=== PATIENT | female | born 1975 | race Caucasian/White ===

== ENCOUNTER 2017-04-03 00:25 | Emergency (ER) | payer SELFPAY ==
[2017-04-03 00:38] VITALS: BMI 25.6
[2017-04-03] MEDS ORDERED: TORADOL 60 MG VIAL IM ONE (00:44)
[2017-04-03] MEDS ORDERED: CLEOCIN PO ONE (00:45)
--- NOTE | 2017-04-03 00:45 | DR.GENAD ---
HPI - PCP Primary Care Physician: NFD - HPI Comment HPI Comment: WORSE TONIGHT. NO FEVER. HISTORY DENTAL CARIES. - Complaint/Symptoms Chief Complaint Doctors Comments: TOOTHACHE AND LT JAW PAIN TIMES 2 DAYS. Chief Complaint:: LT DENTAL PAIN UPPER AND LOWER JAW PAIN - Nurses notes reviewed Nurses Notes Review: Yes - Source History Provided: Patient - Mode of Arrival Mode of Arrival: Ambulatory - Timing Onset of Chief Complaint: 04/03/17 Came on: Suddenly - Duration Duration: Constant Duration: Days - Severity Severity: Moderate PMH - PMH Past Medical History: Yes Past Medical History: Diabetes Past Surgical History: Yes Surgical History: , Hysterectomy - Family History History of Family Medical Conditions: Yes Family Medical History: Hypertension - Social History Have you used tobacco products in the last 12 months: Yes Type of Tobacco Use: Cigarettes Does any household member use tobacco: Yes Alcohol Use: None Do you use any recreational Drugs:: No Lives With: Family Lives Where: Home - infectious screening In the last 2 months have you had wt loss of >10#?: NO Have you had fever, night sweats or hemotysis?: No Have you traveled outside the country in the last 6 months?: No Isolation: Standard ROS - Review of Systems Constitutional: No Symptoms Reported Eyes: No Symptoms Reported ENTM: Mouth Pain (LT UPPER AND LOWER MOLARS PAINFUL) Respiratoy: No Symptoms Reported Cardiovascular: No Symptoms Reported Gastrointestinal/Abdominal: No Symptoms Reported Genitourinary: No Symptoms Reported Neurological: No Symptoms Reported Musculoskeletal: No Symptoms Reported Integumentary: No Symptoms Reported Hematologic/Lymphatic: No Symptoms Reported Endocrine: No Symptoms Reported All Other Systems: Reviewed and Negative PE - Vital Signs Vitals: Temperature 97.1 F Pulse Rate [Left] 88 Pulse Rate 98 Respiratory Rate 16 Blood Pressure [Right Arm] 148/79 Blood Pressure 189/107 O2 Sat by Pulse Oximetry 98 - General Limitations: Language Barrier General Appearance: Alert - Head Head Exam: Normal Inspection - Eyes Eye exam: Normal Appearance - ENT ENT Exam: Normal External Ear Exam External Ear Exam: Normal External Inspection TM/Canal Exam: Bilateral Normal Nose Exam: Normal Nose Exam Mouth Exam: Other (LT MOLARS INFLAME WITH SWOLLEN GUM OVER THE MOLARS. MULTIPLE DENTAL CARIES.). negative: Trismus Throat Exam: Normal Inspection - Neck Neck Exam: Trachea Midline - Chest Chest Inspection: Symmetric Chest Wall Rise - Respiratory Respiratory Exam: Normal Lung Sounds Bilat Respiratory Exam: Bilateral Clear to Auscultation - Cardiovascular Cardiovascular Exam: Regular Rate, Normal Rhythm, Normal Heart Sounds - Abdominal Exam Abdominal Exam: Normal Bowel Sounds, Soft. negative: Tenderness - Extremities Extremities Exam: Normal Inspection - Back Back Exam: Normal Inspection - Neurologic Neurological Exam: Alert, Oriented X3 - Psychiatric Psychiatric Exam: Normal Affect, Normal Mood - Skin Skin Exam: Normal Color MDM - Additional Information Additional Information Obtained From: Family - Differential Diagnosis Differential Diagnosis: DENTAL PAIN, GINGIVITIS Course - Treatment Treatment: SEE ORDERS. IM AND PO MEDS IN ED. PAIN SLIGHTLY DECREASE. - Reevaluation 1st: Improved - Education/Counseling Education/Counseling: Patient, Family, Education Educated On: Diagnosis, Needs for Follow Up - Diagnosis Discharge Problem: Pain, dental, Gingivitis - Discharge Plan Disposition: 01 HOME, SELF-CARE Condition: Stable Prescriptions: Acetaminophen with Codeine [Tylenol/Codeine #3 300-30 mg] 1 tab PO Q6H PRN #15 tab PRN Reason: Pain Clindamycin HCl 300 mg PO Q6H #40 cap - Follow ups/Referrals Follow ups/Referrals: NFD,None [Primary Care Provider] - 3 days - Instructions Instructions: Gingivitis, [id number], Dental Abscess, [id number] Additional Instructions: RETURN TO ED IF WORSE. FOLLOW UP WITH DENTIST OF YOUR CHOICE.
[2017-04-03] MEDS ORDERED: TORADOL 60 MG VIAL ONE (00:55)
[2017-04-03] MEDS ORDERED: CLEOCIN ONE (00:56)
[2017-04-03] MEDS ORDERED: TYLENOL #3 TAB (W/CODEINE) PO ONE ×2 (01:40→01:41)
[2017-04-03 02:03] VITALS: BP 148/79
== END 2017-04-03 02:00 | disposition home or self-care (01) ==
LOC: ER 00:25
DX: K05.10 Chronic gingivitis, plaque induced (principal); K08.89 Other specified disorders of teeth and supporting structures
CPT/HCPCS: 96372; 99282; 99283; J1885